=== PATIENT | female | born 1965 | race Caucasian/White ===

== ENCOUNTER 2021-09-10 09:47 | Emergency (ER) | payer OTHER ==
[~2021-09-10] VITALS: Ht 167.6 cm; Wt 84.0 kg
[2021-09-10 11:15] VITALS: BP 144/91
[2021-09-10] MEDS ORDERED: SULF1TAB24 PO (11:37)
[2021-09-10] MEDS ORDERED: CLIN150C16 PO (11:37)
--- NOTE | 2021-09-10 11:37 | PHYS DOC ---
General Adult EDM: Chief Complaint: ANIMAL BITE HPI: HPI: Patient is a 56-year-old female who presents to the emergency department for a cat bite and a scratch to her right wrist and forearm that occurred 3 days ago. Patient reports that it was a stray cat that bit her and she is on sure of the vaccine status and the cat is not an animal control custody. Patient is reporting pain to her wrist 8 out of 10. No treatment prior to arrival. Patient is unsure of her last tetanus shot. Patient denies any fevers, nausea, vomiting, joint pain or muscle aches. (GURJIT KIM APRN) Review of Systems: Review of Systems: Constitutional: See HPI GI: See HPI Musculoskeletal: See HPI Integument: See HPI (GURJIT KIM APRN) Physical Exam: PE: Constitutional: Well developed, well nourished, no acute distress, non-toxic appearance. [] HENT: Normocephalic, atraumatic, bilateral external ears normal, oropharynx moist, no oral exudates, nose normal. [] Eyes: PERRL, EOMI, conjunctiva normal, no discharge. [] Neck: Normal range of motion, no stridor Cardiovascular: Normal peripheral perfusion Lungs & Thorax: Normal work of breathing, no tachypnea Abdomen: Soft and flat Skin: Warm, dry, erythema and swelling noted to patient's right wrist and forearm with small abrasions less than 0.5 cm noted to the dorsal and palmar aspect of wrist, range of motion intact, neuro intact, no open wounds, no crepitus Back: Normal range of motion Extremities: No tenderness, no cyanosis, no clubbing, ROM intact, no edema. [] Neurologic: Alert and oriented X 3, normal motor function, normal sensory function, no focal deficits noted. [] Psychologic: Affect normal, judgement normal, mood normal. [] (GURJIT KIM APRN) EKG: EKG: [] (GURJIT KIM APRN) Radiology/Procedures: Radiology/Procedures: [] (GURJIT KIM APRN) Heart Score: C/O Chest Pain: N/A Risk Factors: Risk Factors: DM, Current or recent (<one month) smoker, HTN, HLP, family history of CAD, obesity. Risk Scores: Score 0 - 3: 2.5% MACE over next 6 weeks - Discharge Home Score 4 - 6: 20.3% MACE over next 6 weeks - Admit for Clinical Observation Score 7 - 10: 72.7% MACE over next 6 weeks - Early Invasive Strategies (GURJIT KIM APRN) Course & Med Decision Making: Course & Med Decision Making Pertinent Labs and Imaging studies reviewed. (See chart for details) [] Patient presents to the emergency department for redness, warmth, swelling and pain after being bit by a cat 3 days ago. No concern for foreign bodies, no open wounds, minor abrasions noted. Patient is unsure of her last tetanus and this was updated in the ER. Patient states that it was a stray cat and she is unknown of vaccine status therefore she will be started on rabies treatment. Patient reports that she was told by [facility] that if we started the rabies series that they could finish it. Patient will also be discharged home with antibiotics. She will be given the information for [facility] to follow-up with them in a week. Patient advised to take Tylenol and/or ibuprofen for her pain. I discussed with patient all findings and diagnostic testing as well as the need to follow-up with PCP for further evaluation and treatment or return to the ER if any new or worsening symptoms. Strict return precautions were also discussed at length. Patient voiced understanding and agreement with the plan. Patient is hemodynamically stable at the time of disposition. (GURJIT KIM APRN) Dragon Disclaimer: Dragon Disclaimer: This electronic medical record was generated, in whole or in part, using a voice recognition dictation system. (GURJIT KIM APRN) Attending Co-Sign The patient was seen and interviewed as well as examined at the bedside. The chart was reviewed. The case was discussed. Agree with the plan of care. (ZULEYKA GODFREY DO) Departure Departure: Impression: Primary Impression: Cellulitis Qualified Codes: L03.113 - Cellulitis of right upper limb Disposition: HOME / SELF CARE / HOMELESS Condition: GOOD Referrals: PCP,NO (PCP) Patient Instructions: Cellulitis, Rabies Immune Globulin, human RIG solution for injection Additional Instructions: You were seen in the emergency department for a skin infection following a cat bite. You will be treated with 2 antibiotics, please start and finish them completely. Please take with food as they may cause GI upset. Your tetanus was updated in the ER. You are also started on rabies vaccines, please follow-up with [facility] to obtain the remainder of the series. For your pain he can take Tylenol and/ibuprofen. Please follow-up with [facility] within a week by calling [phone]. Please return to the emergency department if you high fevers refractory to treatment, intractable nausea vomiting, severe body aches, worsening of your infection as evidenced by increased redness, increased swelling, decreased range of motion or decreased sensation in your extremity. Scripts Ibuprofen (IBUPROFEN) 600 Mg Tablet 600 MG PO Q6HRS for pain for 7 Days, #28 TAB 0 Refills Prov: GURJIT KIM APRN 09/10/21 Sulfamethoxazole/Trimethoprim (BACTRIM DS TABLET) 1 Each Tablet 1 TAB PO BID for antibiotic for 10 Days, #20 TAB 0 Refills Prov: GURJIT KIM APRN 09/10/21 Clindamycin Hcl (CLINDAMYCIN HCL) 150 Mg Capsule 450 MG PO TID for antibiotic for 10 Days, #90 CAP 0 Refills Prov: GURJIT KIM APRN 09/10/21 GURJIT KIM APRN Sep 10, 2021 11:37 ZULEYKA GODFREY DO Sep 11, 2021 06:36
[2021-09-10] MEDS ORDERED: RABIES IMMUNE GLOBULIN VAX IM ONE (11:45)
[2021-09-10] MEDS ORDERED: DIPH,PERTUSS(ACELL),TET VAC/PF 0.5 ML SYRINGE. VAX IM ONE (12:00)
[2021-09-10] MEDS ORDERED: RABIES VIRUS VACC PF 2.5 UNIT / 1 ML VIAL. VAX IM ONE (12:15)
[2021-09-10] MEDS ORDERED: RABIES IMMUNE GLOBULIN/PF 300 UNIT/ML 5ML VIAL. VAX IM ONE (12:15)
[2021-09-10] MEDS ORDERED: IBUP600T16 PO (14:45)
[2021-09-10] MEDS ORDERED: IBUPROFEN 600 MG TABLET. PO ONE (15:00)
== END 2021-09-10 14:50 | disposition home or self-care (01) ==
LOC: ER 09:47
DX: S50.811A Abrasion of right forearm, initial encounter (principal); L03.113 Cellulitis of right upper limb; W55.01XA Bitten by cat, initial encounter; Y93.89 Activity, other specified; Y92.89 Other specified places as the place of occurrence of the external cause; Y99.8 Other external cause status
CPT/HCPCS: 90375; 90471; 90472; 90675; 90715; 96372; 99284